=== PATIENT | male | born 1960 | race Caucasian/White ===

== ENCOUNTER 2016-03-22 17:22 | Emergency (ER) | payer OTHER ==
[~2016-03-22] VITALS: Ht 172.7 cm; Wt 133.8 kg
[~2016-03-22 17:22] MED LIST: AZITHROMYCIN250 M1 PO; benadryl/lido/maalox PO
[2016-03-22] MEDS ORDERED: ALEVE220 M1 PO (18:09)
--- NOTE | 2016-03-22 18:17 | ED THROAT/DENTAL COMPLAINT ---
History of Present Illness General Chief Complaint: Sore Throat, Dental Pain Stated Complaint: DENTAL PAIN Source: patient, old records Exam Limitations: no limitations Vital Signs & Intake/Output Vital Signs & Intake/Output Vital Signs Date Time Temp Pulse Resp B/P Pulse O2 O2 Flow FiO2 Ox Delivery Rate 03/22 1836 168/92 03/22 1733 97.1 101 16 167/100 99 Room Air Allergies Coded Allergies: No Known Allergies (02/02/16) Reconcile Medications Amoxicillin/Potassium Clav (Augmentin 875-125 Tablet) 875 MG-125 MG TABLET 1 TAB PO BID dental infection [magic mouthwash] 10 ML PO Q6H PRN MOUTH PAIN 1/3 benadryl, 1/3 lidocaine, 1/3 maalox 10 ml swish and spit out q6h prn pain Naproxen Sodium (Aleve) 220 MG CAPSULE 2 CAP PO PRN PAIN/INFLAMMATION ( Reported) Triage Note: PT TO ED FOR TOOTH PAIN, HAS APPT WITH DENTIST ON WEDNESDAY. Triage Nurses Notes Reviewed? yes HPI: Patient is a 55-year-old male presents complaining of right lower dental pain. Patient saw his dentist 12 days ago. Patient had x-rays which showed a cavity to one of his right inferior molars. Patient has appointment on Wednesday for another dentist for tooth extraction. Patient reports over the past couple of days he had increasing pain to the area and then today noticed swelling. Patient has been taking Aleve with minimal improvement. Pain is severe throbbing/sharp pain worsens with palpation and eating. Patient denies fevers, chills, difficulty swallowing. (ROLO KWAN) Past History Travel History Traveled to [place] past 21 day No Medical History Any Pertinent Medical History? none Neurological: NONE EENT: NONE Cardiovascular: NONE Respiratory: NONE Gastrointestinal: NONE Hepatic: NONE Renal: NONE Musculoskeletal: NONE Psychiatric: NONE Endocrine: NONE Blood Disorders: NONE Cancer(s): NONE PHLEBOTOMIST MEDICAL LAB ASSISTANT/Reproductive: NONE Surgical History Surgical History: non-contributory Psychosocial History What is your primary language Chadian Tobacco Use: Current Daily Use Daily Tobacco Use Amount/Type: => 5 Cigarettes daily ETOH Use: occasional use Illicit Drug Use: denies illicit drug use Family History Hx Contributory? No (ROLO KWAN) Review of Systems Review of Systems Constitutional: Denies: chills, fever. EENTM: Reports: see HPI. Respiratory: Denies: cough, short of breath. Cardiovascular: Denies: chest pain. GI: Denies: abdominal pain, vomiting. Musculoskeletal: Reports: no symptoms. Skin: Reports: no symptoms. Neurological/Psychological: Reports: no symptoms. Hematologic/Endocrine: Reports: no symptoms. Immunologic/Allergic: Reports: no symptoms. (ROLO KWAN) Physical Exam Physical Exam General Appearance: well developed/nourished, alert, awake, obese Head: normal appearance, mild right mandibular swelling Eyes: Bilateral: normal appearance, PERRL, EOMI. Nose: normal inspection Mouth/Throat: see diagram Neck: normal inspection, supple, full range of motion, no stridor Cardiovascular/Respiratory: regular rate/rhythm, no respiratory distress Back: normal range of motion Neurologic/Psych: no motor/sensory deficits, awake, alert, oriented x 3, normal gait, normal mood/affect Skin: intact, normal color, warm/dry Diagram Dental: 1) tenderness. 2) mild facial swelling Core Measures ACS in differential dx? No Severe Sepsis Present: No Septic Shock Present: No (ROLO KWAN) Progress Differential Diagnosis: carious tooth, epiglottitis, Ludwigs angina, odontogenic abscess, stomatitis/gingivitis Plan of Care: Patient is nontoxic-appearing, afebrile. Patient has an appointment in 2 days with his dentist. Will start on oral antibiotics and outpatient follow-up closely outpatient. (ROLO KWAN) Departure Departure Time of Disposition: 1830 Disposition: HOME OR SELF CARE Condition: Stable Clinical Impression Primary Impression: Dental abscess Secondary Impressions: Elevated blood pressure reading Referrals: ИВАН ARITA DO, MD,RADHA PATIENT HAS NO PRIMARY CARE DR (PCP/Family) Additional Instructions: Follow-up with the dentist on Wednesday as scheduled. Also follow-up with one of the primary care doctors listed in your discharge paperwork to establish a doctor and for further evaluation of blood pressure. Call Wednesday for appointment. Return to the emergency department if fevers, swallowing is becoming more difficult, difficulty breathing, or worsening of symptoms. Departure Forms: Customer Survey General Discharge Information Prescriptions: Current Visit Scripts Amoxicillin/Potassium Clav (Augmentin 875-125 Tablet) 1 TAB PO BID #14 TAB [magic mouthwash] 10 ML PO Q6H PRN MOUTH PAIN #150 ML 1/3 benadryl, 1/3 lidocaine, 1/3 maalox 10 ml swish and spit out q6h prn pain (EV GTZ,ROLO) PA/[employer] Co-Sign Statement Statement: ED Attending supervision documentation- [] I saw and evaluated the patient. I have also reviewed all the pertinent lab results and diagnostic results. I agree with the findings and the plan of care as documented in the PA's/[employer]'s documentation. X I have reviewed the ED Record and agree with the PA's/[employer]'s documentation. [] Additions or exceptions (if any) to the PAs/[employer]'s note and plan are summarized below: [] (NICK KELLOGG,MARK)
[2016-03-22] MEDS ORDERED: AUGMENTIN 875-1 EACH PO (18:35)
[2016-03-22] MEDS ORDERED: magic mouthwash PO (18:35)
[2016-03-22 18:36] VITALS: BP 168/92
== END 2016-03-22 18:54 ==
LOC: ERH 17:22
DX: K04.7 Periapical abscess without sinus (principal); R03.0 Elevated blood-pressure reading, without diagnosis of hypertension